=== PATIENT | female | born 1960 | race Two or more races ===

== ENCOUNTER 2024-11-01 14:05 | Inpatient (IN) | payer MEDICAID, OTHER ==
[~2024-11-01] VITALS: Ht 165.1 cm; Wt 96.4 kg
--- NOTE | 2024-11-01 14:16 | ED.PDOC ---
Doriet. trauma (HPI) HPI Comments 64 y.o female with PMhx of HLD, presents to the ED via EMS for a chief complaint of right shoulder pain s/p trip and fall getting out of [employer] today. Patient reports tripping over a cement block the parking structure and later developed generalized weakness and nausea. Patient described shoulder pain as sharp and has limited ROM. EMS reports patient was diaphoretic on scene and hypotensive in the low 90's systolic. Patient was given IV fluids and remained hypotensive at 88/60. Patient denies any dizziness, lightheadedness, chest pain vomiting, fever, chills, recent illness, hx of anemia, tarry stool, bloody stool, hematemesis. Time Seen by MD: 14:10 Reviewed notes: Nurses Notes, Hat Designer Notes, Medications, Allergies Allergies: Coded Allergies: NO KNOWN ALLERGIES (Unverified , 11/01/24) Information Source: Patient, Emergency Med Personnel Mode of Arrival: EMS Severity: Moderate Timing: Hours Prehospital treatment: 12 Lead EKG, Accucheck (112), IVF Location: (R) Shoulder Location of laceration: None Mechanism: Fall Past Medical History PAST MEDICAL HISTORY: High Lipids Surgical History: [employer]IVER History: No Pertinent [employer]LE[employer]IVER History Family History Family History: Family hx of DM, Family hx of Cancer, Family hx of stroke Social History Smoker: Non-Smoker Alcohol: Denies ETOH Use Drugs: Denies Drug Use Lives In: Home Constitutional: reports: weakness; denies: chills, diaphoresis, fatigue, fever, malaise, sweats, others EENTM: denies: blurred vision, double vision, ear bleeding, ear discharge, ear drainage, ear pain, ear ringing, eye pain, eye redness, hearing loss, mouth pain, mouth swelling, nasal discharge, nose bleeding, nose congestion, nose pain, photophobia, tearing, throat pain, throat swelling, voice changes, others Respiratory: denies: cough, hemoptysis, orthopnea, SOB at rest, shortness of breath, SOB with excertion, stridor, wheezing, others Cardiovascular: denies: chest pain, dizzy spells, diaphoresis, Dyspnea on exertion, edema, irregular heart beat, left arm pain, lightheadedness, palpitations, PND, syncope, others Gastrointestinal: denies: abdomen distended, abdominal pain, blood streaked bowels, constipated, diarrhea, dysphagia, difficulty swallowing, hematemesis, melena, nausea, poor appetite, poor fluid intake, rectal bleeding, rectal pain, vomiting, others Genitourinary: denies: abnormal vagina bleeding, burning, dyspareunia, dysuria, flank pain, frequency, hematuria, incontinence, pain, , vagina discharge, urgency, others Neurological: denies: dizziness, fainting, headache, left sided numbness, left sided weakness, numbness, paresthesia, pre-existing deficit, right sided numbness, right sided weakness, seizure, speech problems, tingling, tremors, weakness, others Musculoskeletal: reports: others (right shoulder pain ); denies: back pain, gout, joint pain, joint swelling, muscle pain, muscle stiffness, neck pain Integumetry: denies: bruises, change in color, change in hair/nails, dryness, laceration, lesions, lumps, rash, wounds, others Allergic/Immunocompromised: denies: Difficulty Healing, Frequent Infections, Hives, Itching, others Hematologic/Lymphatic: denies: anemia, blood clots, easy bleeding, easy bruising, swollen glands, others Endocrine: denies: excessive hunger, excessive sweating, excessive thirst, excessive urination, flushing, intolerance to cold, intolerance to heat, unexplained weight gain, unexplained weight loss, others Psychiatric: denies: anxiety, bipolar disorder, depression, hopeless, panic disorder, schizophrenia, sleepless, suicidal, others All Other Systems: Reviewed and Negative Physical Exam General Appearance: Moderate Distress HEENT: Normal ENT Inspection, Pharynx Normal, TMs Normal Neck: Full Range of Motion, Non-Tender, Normal, Normal Inspection Respiratory: Chest Non-Tender, Lungs Clear, No Accessory Muscle Use, No Respiratory Distress, Normal Breath Sounds Cardiovascular: No Edema, No JVD, No Murmur, No Gallop, Normal Peripheral Pulses, Regular Rate/Rhythm Breast Exam: Deferred Gastrointestinal: No Organomegaly, Non Tender, No Pulsatile Mass, Normal Bowel Sounds, Soft Genitalia: Deferred Pelvic: Deferred Rectal: Deferred Extremities: No calf tenderness, Normal capillary refill, No pedal edema Musculoskeletal : Location: Right Extremity Location: Shoulder Apperance: Limited ROM, Tenderness: Moderate Neurologic: Alert, alum operator II-XII nml as Tested, No Motor Deficits, Normal Affect, Normal Mood, No Sensory Deficits Cerebellar Function: Normal Reflexes: Normal Skin: Dry, Normal Color, Warm Lymphatic: No Adenopathy Was a procedure done? Was a procedure done?: No Differential Diagnosis Multiple Trauma: Closed Head Injury, Fractures, Abrasions, Contusion X-Ray, Labs, Meds, VS Vital Signs Date Time Temp Pulse Resp B/P (MAP) Pulse Ox O2 Delivery O2 Flow Rate FiO2 11/01/24 16:00 62 15 118/84 (95) 97 11/01/24 15:00 97.3 62 13 106/55 (72) 98 97.3 11/01/24 15:00 62 13 98 Nasal Cannula* 2 28 11/01/24 14:20 97.7 63 15 92/62 (72) 95 97.7 Lab Test 11/01/24 14:23 Range/Units White Blood Count 7.2 4.4-10.8 10^3/uL Red Blood Count 3.91 L 4.0-5.20 10^6/uL Hemoglobin 12.1 L 12.2-16.2 g/dL Hematocrit 34.8 L 36.0-46.0 % Mean Corpuscular Volume 89.0 80.0-100.0 fL Mean Corpuscular Hemoglobin 31.1 28.0-32.0 pg Mean Corpuscular Hemoglobin Concent 34.9 32.0-36.0 g/dL Red Cell Distribution Width 12.9 11.8-14.3 % Platelet Count 330 140-450 10^3/uL Mean Platelet Volume 6.4 L 6.9-10.8 fL Neutrophils (%) (Auto) 52.8 37.0-80.0 % Lymphocytes (%) (Auto) 37.5 10.0-50.0 % Monocytes (%) (Auto) 7.8 0.0-12.0 % Eosinophils (%) (Auto) 1.5 0.0-7.0 % Basophils (%) (Auto) 0.4 0.0-2.0 % Neutrophils # (Auto) 3.8 1.6-8.6 10 ^3/uL Lymphocytes # (Auto) 2.7 0.4-5.4 10 ^3/uL Monocytes # (Auto) 0.6 0-1.3 10 ^3/uL Eosinophils # (Auto) 0.1 0-0.8 10 ^3/uL Basophils # (Auto) 0 0-0.2 10 ^3/uL Nucleated Red Blood Cells 0.1 % Sodium Level 138 136-145 mmol/L Potassium Level 4.2 3.5-5.1 mmol/L Chloride Level 107 98-107 mmol/L Carbon Dioxide Level 23 20-31 mmol/L Anion Gap 8 5-15 Blood Urea Nitrogen 8 L 9-23 mg/dL Creatinine 0.79 0.550-1.02 mg/dL Glomerular Filtration Rate Calc 83 >90 mL/min BUN/Creatinine Ratio 10.1 10.0-20.0 Serum Glucose 104 74-106 mg/dL Calcium Level 9.0 8.7-10.4 mg/dL Current Medications Medications (Trade) Dose Ordered Sig/Yessy Route Start Time Stop Time Status Last Admin Sodium Chloride 1,000 ml @ 1,000 mls/hr Q1H ONCE IV 11/01/24 14:15 11/01/24 15:14 DC 11/01/24 15:29 Ondansetron HCl (Zofran) 4 mg ONCE ONCE IV 11/01/24 14:15 11/01/24 14:16 DC 11/01/24 15:28 Hep-Lock was established The patient was given a 1 L bolus of normal saline The patient was given Zofran 4 mg IV push for the nausea The patient's CBC and chemistry panel are within normal limits The patient is being admitted at this time The patient is shoulder was x-rayed and shows: FINDINGS/IMPRESSION: Possible Hill-Sachs deformity to the proximal humerus no prior studies for comparison. Consider nonemergent MRI for further evaluation. Images Reviewed?: Images reviewed and evaluated by me Time of 1ST Reevaluation: 14:16 Reevaluation 1ST: Unchanged Patient Education/Counseling: Diagnosis, Treatment, Prognosis Family Education/Counseling: No Family Present Departure 1 Departure Time of Disposition: 16:43 Impression: Primary Impression: History of fall Additional Impressions: Hypotension Qualified Codes: I95.0 - Idiopathic hypotension Autonomic dysfunction Right humeral fracture Qualified Codes: S42.294A - Other nondisplaced fracture of upper end of right humerus, initial encounter for closed fracture Disposition: ADMITTED INPATIENT Admit to: [facility] Condition: Fair Critical Care Note Critical Care Time?: Yes (35 min-critical care time only) Stability Stability form required: Yes Unstable for transfer: Telemetry monitoring (Telemetry monitoring required), ED Physician Assesment (Clinical assesment) I personally scribed for YUE MORRIS MD ([email or web address]) on 11/01/24 at 14:16. Electronically submitted by Olive Trent ([facility]). YUE MORRIS MD Nov 01, 2024 14:16
[2024-11-01 14:47] LABS: Hematocrit 34.8 % (36.0-46.0); Hemoglobin 12.1 g/dL (12.2-16.2); Mean Corpuscular Hemoglobin 31.1 pg (28.0-32.0); Mean Corpuscular Volume 89.0 fL (80.0-100.0); Nucleated Red Blood Cells % 0.1 %
[2024-11-01 14:52] LABS: Chloride 107 mmol/L (98-107); Potassium 4.2 mmol/L (3.5-5.1); Sodium 138 mmol/L (136-145)
[2024-11-01 14:53] LABS: Anion Gap 8 (5-15); Calcium 9.0 mg/dL (8.7-10.4); Carbon Dioxide 23 mmol/L (20-31)
[2024-11-01 14:58] LABS: BUN/Creatinine Ratio 10.1 (10.0-20.0); Glucose 104 mg/dL (74-106)
[2024-11-01 15:00] VITALS: PULSE 62; RESP 13; O2SAT 98
[2024-11-01 15:00] LABS: Blood Urea Nitrogen 8 mg/dL (9-23)
--- NOTE | 2024-11-01 15:23 | DVH ---
CLINICAL INDICATION: pain TECHNIQUE: 3 radiographic views of the right shoulder were obtained. Comparison: None FINDINGS/IMPRESSION: Possible Hill-Sachs deformity to the proximal humerus no prior studies for comparison. Consider nonemergent MRI for further evaluation.
[2024-11-01] MEDS: ONDANSETRON HCL 4 MG/2 ML VIAL IV ONE (15:28)
[2024-11-01] MEDS: SODIUM CHLORIDE 0.9% 1,000 ML IV ONE (15:29)
[2024-11-01] MEDS: ACETAMINOPHEN 325 MG TAB PO ONE (16:46)
[2024-11-01 18:22] LABS: Urine Protein, UAD Negative (Negative)
--- NOTE | 2024-11-01 22:26 | DVHHP2 ---
History of Present Illness History of Present Illness patient is 64 years old female with PMH of hyperlipidemia was brought in by EMS status post fall. Patient tripped and fell today when she was getting out of her [employer]. As per patient she tripped and fell on concrete block at the parking lot. Patient denied hitting her head, dizziness or vertigo before falling. Following a fall patient complained of pain in the right shoulder, 10/10, constant, increased with movement. Patient also endorsed some nausea but no vomiting. Per EMS documentation patient was diaphoretic, hypotensive at the scene, blood pressure was 88/60. Patient denied any chest pain, shortness of breath, diarrhea, palpitation, dysarthria or change in vision. Initial lab workup revealed hemoglobin 12.1, urinalysis negative for UTI. X-ray right shoulder Possible Hill-Sachs deformity to the proximal humerus. Past Medical History Hyperlipidemia Past Surgical History , jaw surgery at the age of 15 Family History none Past Social History Patient denied smoking/alcoholism/drug abuse, lives alone in a trailer Review of Systems Review of Systems Allergy- NKDA Patient was seen today at the bedside. Cardiovascular- deny acute chest pain or shortness of breath or cough or palpitation Respiratory denies cough or short of breath or wheezing Gastrointestinal- denies any rectal bleeding, vomiting Musculoskeletal-denies acute joint swelling or tenderness or redness Neurological- denies acute dysarthria, dysphagia, change in vision Psychiatry- denies depression or SI or HI Skin- denies acute rash or purpura Allergies: Coded Allergies: NO KNOWN ALLERGIES (Unverified , 11/01/24) Exam Vital Signs Vital Signs Date Time Temp Pulse Resp B/P (MAP) Pulse Ox O2 Delivery O2 Flow Rate FiO2 11/01/24 20:00 77 11/01/24 18:00 15 127/78 (94) 98 11/01/24 15:00 97.3 97.3 11/01/24 15:00 Nasal Cannula* 2 28 Exam General examination- awake, alert, conversant HEENT- PEERLA, no acute nasal discharge Cardiovascular- S1-S2 audible, rate and rhythm regular, no murmur Respiratory- CTAB, no wheeze or rhonchi Gastrointestinal-nontender, bowel sound+. Nondistended Musculoskeletal-no acute joint swelling or tenderness or redness extremity- right shoulder tenderness, limited range of motion+ Neurological- cranial nerves intact, no acute dysarthria or dysphagia Psychiatry- denies depression or SI or HI Skin- no acute rash or purpura Labs/Xrays Labs Test 11/01/24 17:47 11/01/24 14:23 Range/Units Urine Color Colorless Yellow Urine Clarity Clear Clear Urine pH 7.0 5.0-9.0 Urine Specific [place] 1.007 1.001-1.035 Urine Protein Negative Negative Urine Ketones Negative Negative Urine Blood Negative Negative /uL Urine Nitrite Negative Negative Urine Bilirubin Negative Negative Urine Urobilinogen Normal Negative mg/dL Urine Leukocyte Esterase Negative Negative /uL Urine RBC 3 0 - 4 /hpf Urine Microscopic WBC < 1 0-5 /HPF Urine Squamous Epithelial Cells Few <5 /hpf Urine Bacteria Few H None Seen /hpf Urine Glucose Normal Normal mg/dL White Blood Count 7.2 4.4-10.8 10^3/uL Red Blood Count 3.91 L 4.0-5.20 10^6/uL Hemoglobin 12.1 L 12.2-16.2 g/dL Hematocrit 34.8 L 36.0-46.0 % Mean Corpuscular Volume 89.0 80.0-100.0 fL Mean Corpuscular Hemoglobin 31.1 28.0-32.0 pg Mean Corpuscular Hemoglobin Concent 34.9 32.0-36.0 g/dL Red Cell Distribution Width 12.9 11.8-14.3 % Platelet Count 330 140-450 10^3/uL Mean Platelet Volume 6.4 L 6.9-10.8 fL Neutrophils (%) (Auto) 52.8 37.0-80.0 % Lymphocytes (%) (Auto) 37.5 10.0-50.0 % Monocytes (%) (Auto) 7.8 0.0-12.0 % Eosinophils (%) (Auto) 1.5 0.0-7.0 % Basophils (%) (Auto) 0.4 0.0-2.0 % Neutrophils # (Auto) 3.8 1.6-8.6 10 ^3/uL Lymphocytes # (Auto) 2.7 0.4-5.4 10 ^3/uL Monocytes # (Auto) 0.6 0-1.3 10 ^3/uL Eosinophils # (Auto) 0.1 0-0.8 10 ^3/uL Basophils # (Auto) 0 0-0.2 10 ^3/uL Nucleated Red Blood Cells 0.1 % Sodium Level 138 136-145 mmol/L Potassium Level 4.2 3.5-5.1 mmol/L Chloride Level 107 98-107 mmol/L Carbon Dioxide Level 23 20-31 mmol/L Anion Gap 8 5-15 Blood Urea Nitrogen 8 L 9-23 mg/dL Creatinine 0.79 0.550-1.02 mg/dL Glomerular Filtration Rate Calc 83 >90 mL/min BUN/Creatinine Ratio 10.1 10.0-20.0 Serum Glucose 104 74-106 mg/dL Calcium Level 9.0 8.7-10.4 mg/dL SEPSIS Sepsis Screen Date sepsis recognized/suspect: Nov 01, 2024 Time Sepsis recognized/suspect: 1499 Recent Procedure: No On Antibiotic Therapy: No Respiratory Rate >20: No Heart Rate >90: No Temp<36 C (96.8 F) or >38.3 C: No SBP <90 or MAP <65 mmHG: No New Acute Mental Status Change: No Is the patient on CPAP, BIPAP,: No Vital Signs Date Time Temp Pulse Resp B/P (MAP) Pulse Ox O2 Delivery O2 Flow Rate FiO2 11/01/24 20:00 77 11/01/24 18:00 65 15 127/78 (94) 98 11/01/24 16:00 62 15 118/84 (95) 97 11/01/24 15:00 97.3 62 13 106/55 (72) 98 97.3 11/01/24 15:00 62 13 98 Nasal Cannula* 2 28 Laboratory Tests Test 11/01/24 14:23 White Blood Count 7.2 10^3/uL (4.4-10.8) Medications Medications Dose Ordered Sig/Yessy Route Start Time Stop Time Status Last Admin Dose Admin Acetaminophen 650 mg ONCE ONCE PO 11/01/24 16:45 11/01/24 16:46 DC 11/01/24 16:46 650 MG Ondansetron HCl 4 mg ONCE ONCE IV 11/01/24 14:15 11/01/24 14:16 DC 11/01/24 15:28 4 MG Sodium Chloride 1,000 ml @ 1,000 mls/hr Q1H ONCE IV 11/01/24 14:15 11/01/24 15:14 DC 11/01/24 15:29 1,000 MLS/HR Assessment/Plan Assessment/Plan Assessment and plan # fall, right shoulder pain-rule out acute Humerus fracture/rotator cuff tear -x-ray right shoulder- Possible Hill-Sachs deformity to the proximal humerus -continue pain medication as prescribed -orthopedic consult # hypotension, rule out cardiac arrhythmia/orthostatic hypotension/ BPPV/ dehydration -status post IV normal saline -maintain oral hydration -monitor vitals -ordered orthostatic vitals -pending echo 2D # hyperlipidemia -atorvastatin 40 mg p.o. daily # obesity - patient was counseled about the effect of obesity on health, physical activity, healthy diet, weight reduction PCP-patient reported she does not have a PCP Diet- regular diet Goals of care, Code status full code ; discussed with >15 minutes PUD prophylaxis: Pantoprazole DVT prophylaxis: Lovenox Plan discussed with Dr. Rick , nursing staff, Total time spent on patient evaluation, chart review, assessment and plan, discussion discussion >35 minutes Plan discussed with: Patient, Other (RN) Date of Service: Nov 01, 2024 Billing Provider: SHELBI RICK MD Common Visit Codes: [id number] INP/OBS CARE (HIGH) Secondary Visit Codes: [id number] CARE PLAN 30 MINUTES CHRISTIE GUTIERREZ RESIDENT Nov 01, 2024 22:26
[2024-11-01 23:00] LABS: Alanine Aminotransferase 30.0 U/L (7-40); Albumin 4.0 g/dL (3.2-4.8); Alkaline Phosphatase 48.0 U/L (46-116); Total Protein 6.4 g/dL (5.7-8.2)
[2024-11-01 23:01] LABS: Bilirubin, Direct 0.1 mg/dL (<0.3); Bilirubin, Total 0.6 mg/dL (0.2-1.0)
[2024-11-02] VITALS (11 sets, daily range): BP systolic 117–142; BP diastolic 62–80; PULSE 62–99; RESP 17–20; TEMP 98–99.5; O2SAT 90–97
[2024-11-02 00:16] LABS: Amphetamine Screen, Urine Neg (NEGATIVE); Barbiturate Scree,Urine Neg (NEGATIVE); Benzodiazephine Screen, Urine Neg (NEGATIVE); Cannabinoid Screen, Urine Neg (NEGATIVE); Cocaine Screen, Urine Neg (NEGATIVE); Opiate Scree,Urine Neg (NEGATIVE); Phencyclidine Screen, Urine Neg (NEGATIVE)
[2024-11-02] MEDS ORDERED: ACET-6 PO (00:32)
[2024-11-02] MEDS: PANTOPRAZOLE 40 MG TAB PO ONE (00:42)
[2024-11-02] MEDS: ENOXAPARIN SOD 40 MG/0.4 ML SYRINGE SC ONE (00:43)
[2024-11-02] MEDS: ACETAMINOPHEN 325 MG TAB PO PRN (01:05)
[2024-11-02] MEDS: MAGNESIUM SULFATE 1GM/100ML 100 ML IV ONE (02:47)
[2024-11-02] MEDS: SODIUM CHLOR 0.9% PF (SALINE LOCK) 10ML VIAL/SYR IV SCH (06:25)
[2024-11-02] MEDS: PANTOPRAZOLE 40 MG TAB PO SCH (06:25)
[2024-11-02 11:20] LABS: Hematocrit 35.4 % (36.0-46.0); Hemoglobin 12.2 g/dL (12.2-16.2); Mean Corpuscular Hemoglobin 30.8 pg (28.0-32.0); Mean Corpuscular Volume 89.6 fL (80.0-100.0); Nucleated Red Blood Cells % 0.0 %
[2024-11-02 11:38] LABS: Cholesterol 181 mg/dL (< 200)
[2024-11-02 11:39] LABS: Alanine Aminotransferase 27 U/L (7-40); Albumin 3.8 g/dL (3.2-4.8); Alkaline Phosphatase 52 U/L (46-116); Anion Gap 7 (5-15); Bilirubin, Total 0.6 mg/dL (0.2-1.0); Calcium 9.3 mg/dL (8.7-10.4); Carbon Dioxide 24 mmol/L (20-31); Potassium 3.8 mmol/L (3.5-5.1); Sodium 139 mmol/L (136-145); Total Protein 6.2 g/dL (5.7-8.2)
[2024-11-02 11:42] LABS: BUN/Creatinine Ratio 6.9 (10.0-20.0); Blood Urea Nitrogen < 5 mg/dL (9-23); Chloride 108 mmol/L (98-107); Creatine Kinase IFCC 306 U/L (34-145); Glucose 132 mg/dL (74-106); HDL Cholesterol 37 mg/dL (40-59); Triglycerides 163 mg/dL (< 150)
--- NOTE | 2024-11-02 14:41 | DVHPNRES ---
Progress Note Date Seen: Nov 02, 2024 Resident Creating Document: JOHNNY NUR RESIDENT Objective vital signs Vital Sign Date Time Temp Pulse Resp B/P (MAP) Pulse Ox O2 Delivery O2 Flow Rate FiO2 11/02/24 12:41 98.3 68 17 117/67 (84) 95 98.3 11/02/24 08:00 Room Air* 0 21 Total Intake and Output 11/01/24 11/01/24 11/02/24 15:00 23:00 07:00 Intake Total 1000 ml 0 ml Balance 1000 ml 0 ml medications Current Medications Medications Dose Ordered Sig/Yessy Route Start Time Stop Time Status Last Admin Dose Admin Sodium Chloride 10 ml Q8HR IV 11/02/24 06:00 11/02/24 09:48 10 ML Acetaminophen 650 mg Q6HP PRN PO 11/01/24 22:30 11/02/24 09:47 650 MG Enoxaparin Sodium 40 mg Q24H SC 11/02/24 21:00 Pantoprazole Sodium 40 mg DAILY@0600 PO 11/02/24 06:00 11/02/24 06:25 40 MG Atorvastatin Calcium 40 mg HS PO 11/02/24 22:00 laboratory and microbiology Laboratory Tests 11/02/24 10:10 Test 11/02/24 10:10 Range/Units Serum Glucose 132 H 74-106 mg/dL REGGIE BARNES RESIDENT Nov 02, 2024 14:41
--- NOTE | 2024-11-02 15:48 | DVH ---
CLINICAL INDICATION: Rule out right shoulder fracture/rotator cuff tear COMPARISON: None TECHNIQUE: Multiplanar, multisequence MRI of the right shoulder was performed without contrast. Contrast: None FINDINGS: Glenohumeral joint: There is no fracture or bone marrow edema. Alignment is maintained. No focal a rticular cartilage defect. There is no joint effusion or synovitis. Acromioclavicular joint: There are degenerative changes in the acromioclavicular joint with spurring. Rotator cuff and bursae: There is a full-thickness tear of the supraspinatus tendon and also of the i nfraspinatus tendon. There is roughly 2.5 cm separation of the site of tear. There is also partial te ars of the infraspinatus muscle and of the deltoid muscle posterior to the shoulder joint with edema seen on fluid sensitive images. On transaxial images there is high-grade partial tear of the subscapu forrest tendon and of the subscapularis muscle Biceps tendon and glenoid labrum: The labrum is unremarkable. No Hill-Sachs deformity is presen t. There is lateral subluxation of the long head of the biceps within the bicipital groove. The intra -articular biceps is poorly seen. There is a joint effusion present and there is fluid in the subacromial subdeltoid bursa and subcorac oid bursa. Coracohumeral ligament is not well seen. IMPRESSION: 1. There is no evidence of Hill-Sachs deformity or of labral tear. 2. There is however extensive soft tissue injury to the shoulder joint including full-thickness tears of the supraspinatus and infraspinatus tendons, high-grade partial tears of the subscapularis tendon and muscle and of the infraspinatus muscle. Partial tear of the deltoid muscle. Probable tear of th e intra-articular biceps.
--- NOTE | 2024-11-02 16:48 | DVHPNRES ---
Progress Note Date Seen: Nov 02, 2024 Resident Creating Document: JOHNNY NUR Medical Necessity Reason Pt with a Central, PICC or Fol: No Subjective Review of Systems History of Present Illness Patient is 64 years old female with PMH of hyperlipidemia came to ED with a history of mechanical fall. Patient tripped and fell yesterday when she was getting out of her [employer] on concrete block at the parking lot. Patient was complaining of right shoulder pain. denied hitting her head, dizziness or vertigo before falling., hypotensive at the scene, blood pressure was 88/60. Patient denied any chest pain, shortness of breath, diarrhea, palpitation, dysarthria or change in vision. Today patient was seen and examined at bedside. patient is still complaining of right shoulder pain, x-ray shows no fracture but some abnormality, MRI ordered. Objective vital signs Vital Sign Date Time Temp Pulse Resp B/P (MAP) Pulse Ox O2 Delivery O2 Flow Rate FiO2 11/02/24 12:41 98.3 68 17 117/67 (84) 95 98.3 11/02/24 08:00 Room Air* 0 21 Total Intake and Output 11/01/24 11/01/24 11/02/24 15:00 23:00 07:00 Intake Total 1000 ml 0 ml Balance 1000 ml 0 ml medications Current Medications Medications Dose Ordered Sig/Yessy Route Start Time Stop Time Status Last Admin Dose Admin Sodium Chloride 10 ml Q8HR IV 11/02/24 06:00 11/02/24 09:48 10 ML Acetaminophen 650 mg Q6HP PRN PO 11/01/24 22:30 11/02/24 09:47 650 MG Enoxaparin Sodium 40 mg Q24H SC 11/02/24 21:00 Pantoprazole Sodium 40 mg DAILY@0600 PO 11/02/24 06:00 11/02/24 06:25 40 MG Atorvastatin Calcium 40 mg HS PO 11/02/24 22:00 Examination General examination- awake, alert, conversant HEENT- PEERLA, no acute nasal discharge Cardiovascular- S1-S2 audible, rate and rhythm regular, no murmur Respiratory- CTAB, no wheeze or rhonchi Gastrointestinal-nontender, bowel sound+. Nondistended Musculoskeletal-no acute joint swelling or tenderness or redness extremity- right shoulder tenderness, limited range of motion+ Neurological- cranial nerves intact, no acute dysarthria or dysphagia Psychiatry- denies depression or SI or HI laboratory and microbiology Laboratory Tests 11/02/24 10:10 Test 11/02/24 10:10 Range/Units Serum Glucose 132 H 74-106 mg/dL Labs and/or images reviewed: Labs reviewed by me, Image(s) reviewed by me Problem List/Assessment/Plan Problem List/Assessment/Plan # Right shoulder pain due to mechanical fall # right shoulder deformity # Ruled out right shoulder fracture # Possible rotator cuff tear # Mild rhabdomyolysis - x-ray shows no fracture but some deformity -MRI ordered - Mildly elevated creatinine kinase - orthopedic consult pending - pain management # Hypotension resolved - monitor BP # Hyperlipidemia - continue atorvastatin 40 mg daily - low carb low calorie diet # morbid obesity - BMI is 35.0 - lifestyle modification, regular exercise and low carb low calorie diet Goal of care discussed with patient for 23 minutes: Full code Plan discussed with Plan discussed with: Patient, Other (RN) Date of Service: Nov 02, 2024 Billing Provider: ANNEL HEREDIA MD Common Visit Codes: [id number] INP/OBS CARE(HIGH) JOHNNY NUR RESIDENT Nov 02, 2024 16:48 REGGIE BARNES RESIDENT Nov 02, 2024 19:23 ANNEL HEREDIA MD Nov 03, 2024 16:19
[2024-11-02] MEDS: SODIUM CHLORIDE 0.9% 1,000 ML IV SCH (19:30)
--- NOTE | 2024-11-02 20:11 | DVHSR ---
APPROVED REPORT EXAM: Two-dimensional and M-mode echocardiogram with Doppler and color Doppler. Blood Pressure: 121/62 mmHg INDICATION Valvular heart disease/ CHF RISK FACTORS Height: 65, Weight: 210 DIMENSIONS LVDd4.6 (3.8-5.7cm)LA (2D)3.7 (1.9-4.0cm)Aortic Root3.3 (2.0-3.7cm) LVDs3.2 (2.5-4.0cm)LA (MM) (1.9-4.0cm)Aortic Cusp Exc1.9 (1.5-2.0cm) EF (%) 57.0 (55-70%)Rt. Atrium3.8 (1.9-4.0cm)Asc. Aorta cm IVSd1.1 (0.7-1.1cm)RV (D) (1.8-2.4cm) PWd1.2 (0.7-1.1cm) Mitral Valve MitralMitral Stenosis E wave0.87m/sMV Mean GR.mmHg A wave1.12m/sMV Peak GR.55mmHg E/A ratio0.82D MVAcm2 DECEL [id number] 1/2 [id number] IVRTmsDop MVA3.29cm2 Aortic Valve Aortic ValveAortic Stenosis V11.02m/Hanny Mean GR.4mmHg V21.40m/Hanny Peak GR.8mmHg LVOT Diameter1.9 (1.8-2.4cm)Doppler AVA2.06cm2 Pulmonic Valve V21.22m/s Tricuspid Valve TR Velocity2.48m/s [id number] Other Information Technically limited study due to body habitus. Conclusion LV EF IS 65% AND IS NORMAL MODERATE DEGREE MVP NORMAL RV FUNCTION NORMAL TV,PV AND AORTIC VALVE NO EFFUSION
--- NOTE | 2024-11-02 21:24 | DVHINCON2 ---
Consult Note Consult Consult Note Reason for Consult: Right shoulder pain after ground-level fall --- HISTORY OF PRESENT ILLNESS: Ms. Gomez is an inpatient who sustained a ground-level fall, resulting in right shoulder pain. Imaging including X-ray and MRI of the right shoulder were completed. X-ray was notable for a possible small Hill-Sachs lesion. MRI demonstrated a full-thickness tear of the supraspinatus infraspinatus tendon, along with partial-thickness tearing of the subscapularis tendon for which ortho was consulted. She reports persistent right shoulder pain with motion, but denies any numbness, tingling, or constitutional symptoms. No previous right shoulder pain reported by patient. --- PHYSICAL EXAMINATION (Right Shoulder): Inspection: No open wounds or ecchymosis noted. No deformity. Palpation: Localized tenderness over the anterior and lateral shoulder. Range of Motion (Active): Forward Flexion: 0 to 40 painful Abduction: 0 to 30 painful Limited exam due to pain Neurologic: Grossly neurovascularly intact to the right upper extremity. Other Joints: no specific findings of concern at this time, none reported by patient. --- IMAGING REVIEW: X-ray (Right Shoulder): Possible small Hill-Sachs lesion, no acute fracture or dislocation. MRI (Right Shoulder): Full-thickness tear of the supraspinatus, infraspinatous tendon, partial-thickness tear of the subscapularis tendon. bicep subluxation, subacromial bursitis , Intact glenoid and labrum. evidence of joint effusion, mild. --- ASSESSMENT: 1. Right shoulder pain secondary to traumatic injury from ground-level fall 2. Full-thickness supraspinatus tear 3. Partial-thickness subscapularis tear 4. Possible Hill-Sachs lesion 5. No acute neurovascular compromise --- PLAN: Advised bedside Nurse to place patient in a sling for comfort and stabilization Discharge from orthopedic standpoint is appropriate with pain control per hospitalist Recommend outpatient orthopedic follow-up within 12 weeks for further evaluation and discussion of surgical vs non surgical management Pain control as per hospital protocol Patient and bedside nurse notified of findings and plan oncall surgeon agree with plan Plan discussed with: Patient, Other (bedside nurse) Visit Coding Surgery Date of Service if different f: Nov 02, 2024 Billing Provider: EZRA HUANG PAC Surgery Visit Codes: [id number] - INP CONSULT <55 MIN EZRA HUANG PAC Nov 02, 2024 21:24
[2024-11-02] MEDS: ENOXAPARIN SOD 40 MG/0.4 ML SYRINGE SC SCH (21:36)
[2024-11-02] MEDS: ATORVASTATIN 20 MG TAB PO SCH (21:52)
[2024-11-03] VITALS (8 sets, daily range): BP systolic 121–153; BP diastolic 74–91; PULSE 64–88; RESP 18–20; TEMP 97.6–98.2; O2SAT 62–97
[2024-11-03 06:11] LABS: Hematocrit 36.8 % (36.0-46.0); Hemoglobin 12.6 g/dL (12.2-16.2); Mean Corpuscular Hemoglobin 30.8 pg (28.0-32.0); Mean Corpuscular Volume 89.7 fL (80.0-100.0); Nucleated Red Blood Cells % 0.1 %
[2024-11-03 06:26] LABS: Anion Gap 6 (5-15); Carbon Dioxide 25 mmol/L (20-31); Chloride 107 mmol/L (98-107); Potassium 4.3 mmol/L (3.5-5.1); Sodium 138 mmol/L (136-145)
[2024-11-03 06:28] LABS: Calcium 8.8 mg/dL (8.7-10.4)
[2024-11-03 06:32] LABS: Glucose 95 mg/dL (74-106)
[2024-11-03 06:33] LABS: BUN/Creatinine Ratio 11.7 (10.0-20.0); Blood Urea Nitrogen 7 mg/dL (9-23)
--- NOTE | 2024-11-03 11:39 | DVHDSRES ---
Discharge Summary Date of Admission Resident Creating Document: JOHNNY NUR RESIDENT Nov 01, 2024 at 22:24 Date of Discharge: Nov 04, 2024 Admitting Diagnosis Right shoulder pain Labs/Diagnostic Data: Laboratory Results Test 11/03/24 05:03 11/02/24 10:10 11/02/24 01:25 11/01/24 17:47 White Blood Count 7.6 10^3/uL (4.4-10.8) Red Blood Count 4.10 10^6/uL (4.0-5.20) Hemoglobin 12.6 g/dL (12.2-16.2) Hematocrit 36.8 % (36.0-46.0) Mean Corpuscular Volume 89.7 fL (80.0-100.0) Mean Corpuscular Hemoglobin 30.8 pg (28.0-32.0) Mean Corpuscular Hemoglobin Concent 34.4 g/dL (32.0-36.0) Red Cell Distribution Width 13.2 % (11.8-14.3) Platelet Count 332 10^3/uL (140-450) Mean Platelet Volume 6.5 fL (6.9-10.8) Neutrophils (%) (Auto) 42.3 % (37.0-80.0) Lymphocytes (%) (Auto) 46.5 % (10.0-50.0) Monocytes (%) (Auto) 8.8 % (0.0-12.0) Eosinophils (%) (Auto) 2.2 % (0.0-7.0) Basophils (%) (Auto) 0.2 % (0.0-2.0) Neutrophils # (Auto) 3.2 10 ^3/uL (1.6-8.6) Lymphocytes # (Auto) 3.5 10 ^3/uL (0.4-5.4) Monocytes # (Auto) 0.7 10 ^3/uL (0-1.3) Eosinophils # (Auto) 0.2 10 ^3/uL (0-0.8) Basophils # (Auto) 0 10 ^3/uL (0-0.2) Nucleated Red Blood Cells 0.1 % Sodium Level 138 mmol/L (136-145) Potassium Level 4.3 mmol/L (3.5-5.1) Chloride Level 107 mmol/L (98-107) Carbon Dioxide Level 25 mmol/L (20-31) Anion Gap 6 (5-15) Blood Urea Nitrogen 7 mg/dL (9-23) Creatinine 0.60 mg/dL (0.550-1.02) Glomerular Filtration Rate Calc 100 mL/min (>90) BUN/Creatinine Ratio 11.7 (10.0-20.0) Serum Glucose 95 mg/dL (74-106) Calcium Level 8.8 mg/dL (8.7-10.4) Hemoglobin A1c 5.6 % A1C (<5.7) Magnesium Level 1.8 mg/dL (1.6-2.6) Total Bilirubin 0.6 mg/dL (0.2-1.0) Aspartate Amino Transferase (AST) 29 U/L (13-40) Alanine Aminotransferase (ALT) 27 U/L (7-40) Alkaline Phosphatase 52 U/L (46-116) Creatine Kinase 306 U/L (34-145) Total Protein 6.2 g/dL (5.7-8.2) Albumin 3.8 g/dL (3.2-4.8) Triglycerides Level 163 mg/dL (< 150) Cholesterol Level 181 mg/dL (< 200) LDL Cholesterol 135 mg/dL (< 100) HDL Cholesterol 37 mg/dL (40-59) Vitamin B12 Level 883 pg/mL (211-911) Vitamin D 25-Hydroxy 52.9 ng/mL (30.0-100) Folic Acid 23.02 ng/mL (>5.38) Troponin I High Sensitivity < 3 ng/L (</=34) Urine Color Colorless (Yellow) Urine Clarity Clear (Clear) Urine pH 7.0 (5.0-9.0) Urine Specific [place] 1.007 (1.001-1.035) Urine Protein Negative (Negative) Urine Ketones Negative (Negative) Urine Blood Negative /uL (Negative) Urine Nitrite Negative (Negative) Urine Bilirubin Negative (Negative) Urine Urobilinogen Normal mg/dL (Negative) Urine Leukocyte Esterase Negative /uL (Negative) Urine RBC 3 /hpf (0 - 4) Urine Microscopic WBC < 1 /HPF (0-5) Urine Squamous Epithelial Cells Few /hpf (<5) Urine Bacteria Few /hpf (None Seen) Urine Glucose Normal mg/dL (Normal) Urine Opiates Screen Neg (NEGATIVE) Urine Fentanyl Screen Neg (NEGATIVE) Urine Barbiturates Screen Neg (NEGATIVE) Urine Phencyclidine Screen Neg (NEGATIVE) Urine Amphetamines Screen Neg (NEGATIVE) Urine Benzodiazepines Screen Neg (NEGATIVE) Urine Cocaine Screen Neg (NEGATIVE) Urine Cannabinoids Screen Neg (NEGATIVE) Test 11/01/24 14:23 Direct Bilirubin 0.1 mg/dL (<0.3) Thyroid Stimulating Hormone (TSH) 1.78 uIU/mL (0.55-4.78) Other Laboratory Tests 11/03/24 05:03 Brief Hx & Hospital Course: Patient is 64 years old female with PMH of hyperlipidemia came to ED with a history of mechanical fall. Patient tripped and fell yesterday when she was getting out of her [employer] on concrete block at the parking lot. Patient was complaining of right shoulder pain. denied hitting her head, dizziness or vertigo before falling., hypotensive at the scene, blood pressure was 88/60. Patient denied any chest pain, shortness of breath, diarrhea, palpitation, dysarthria or change in vision. Today patient was seen and examined at bedside. patient is still complaining of right shoulder pain, x-ray shows no fracture but some abnormality, MRI ordered. Patient had right shoulder pain due to mechanical fall. X-ray shows no acute fractue or dislocation. MRI (right shoulder) demonstrated a full-thickness tear of the supraspinatus infraspinatus tendon, partial-thickness tear of the subscapularis tendon, bicep subluxation, subacrpmial bursitis, intact glenoid and labrum. Orthopedics was consulted recommended: place patient in a sling for comfort and stabilization and outpatient orthopedic follow-up within 12 weeks for further evaluation and discussion of surgical vs non surgical management. Orthopedic cleared the patient to discharge home. We have started on Acetaminophen. Today patient still has pain and we applied sling to her right shoulder. Recommended physical therapy, consulted social service for outpatient physical therapy. Recommended to follow up with orthopedic surgeon as scheduled, follow-up with PCP in 1-2 weeks. Consults/Reason for consult Orthopedic consult Condition at Discharge: Fair Final Diagnosis/Problems List # Right shoulder pain due to mechanical fall # right shoulder deformity # Ruled out right shoulder fracture # Possible rotator cuff tear # Mild rhabdomyolysis # Hypotension resolved # Hyperlipidemia # morbid obesity Discharge Disposition: Home SNF Discharge Will this Physician continue t: No Discharge Instruct/Medications Diet: Regular Activity: Light activity Follow Up/Referral: Follow up with orthopedic surgeon as scheduled, Follow- up with PCP in 1-2 weeks. Medications: Tylenol and ibuprofen Continue other home medications Scheduled Acetaminophen (Acetaminophen Extra Stren), 1 TAB PO TID, (Reported) Discharge Statement: "Patient was advised to return to the ER or call 911 if any headaches, dizziness, shortness of breath, chest pain, abdominal pain, bleeding, fevers, or worsening of medical condition. Patient was counseled about treatment plan, medications, possible side effects, patientverbalized understanding. All questions were answered to the best of my ability. This discharge took greater then 30 minutes in planning, reviewing documentation, counseling the patient, and discussing with other team members." ASSESSMENT ASSESSMENT Assessment JOHNNY NUR RESIDENT Nov 03, 2024 11:39
--- NOTE | 2024-11-03 16:12 | DVHPNRES ---
Progress Note Date Seen: Nov 03, 2024 Resident Creating Document: JOHNNY NUR RESIDENT Has the PT tested + for MRSA If YES, has PT been informed?: No Medical Necessity Reason Pt with a Central, PICC or Fol: No Subjective Review of Systems Patient is 64 years old female with PMH of hyperlipidemia came to ED with a history of mechanical fall. Patient tripped and fell yesterday when she was getting out of her [employer] on concrete block at the parking lot. Patient was complaining of right shoulder pain. denied hitting her head, dizziness or vertigo before falling., hypotensive at the scene, blood pressure was 88/60. Patient denied any chest pain, shortness of breath, diarrhea, palpitation, dysarthria or change in vision. Today patient was seen and examined at bedside. patient is still complaining of right shoulder pain, x-ray shows no fracture but some abnormality, MRI ordered. Patient had right shoulder pain due to mechanical fall. X-ray shows no acute fractue or dislocation. MRI (right shoulder) demonstrated a full-thickness tear of the supraspinatus infraspinatus tendon, partial-thickness tear of the subscapularis tendon, bicep subluxation, subacrpmial bursitis, intact glenoid and labrum. Orthopedics was consulted recommended: place patient in a sling for comfort and stabilization and outpatient orthopedic follow-up within 1-2 weeks for further evaluation and discussion of surgical vs non surgical management. Orthopedic cleared the patient to discharge home. We have started on Acetaminophen. Today patient still has pain and we applied sling to her right shoulder. Recommended physical therapy, consulted social service for outpatient physical therapy. Recommended to follow up with orthopedic surgeon as scheduled, follow-up with PCP in 1-2 weeks. Patient reports: Feels worse Objective vital signs Vital Sign Date Time Temp Pulse Resp B/P (MAP) Pulse Ox O2 Delivery O2 Flow Rate FiO2 11/03/24 13:00 97.6 64 20 153/91 (111) 62 97.6 11/03/24 08:00 Room Air* 0 21 Total Intake and Output 11/02/24 11/02/24 11/03/24 15:00 23:00 07:00 Intake Total 1400 ml 400 ml Balance 1400 ml 400 ml medications Current Medications Medications Dose Ordered Sig/Yessy Route Start Time Stop Time Status Last Admin Dose Admin Sodium Chloride 10 ml Q8HR IV 11/02/24 06:00 11/03/24 07:00 10 ML Acetaminophen 650 mg Q6HP PRN PO 11/01/24 22:30 11/03/24 08:56 650 MG Enoxaparin Sodium 40 mg Q24H SC 11/02/24 21:00 11/02/24 21:36 40 MG Pantoprazole Sodium 40 mg DAILY@0600 PO 11/02/24 06:00 11/03/24 07:01 40 MG Atorvastatin Calcium 40 mg HS PO 11/02/24 22:00 11/02/24 21:52 40 MG Ibuprofen 400 mg Q6HP PRN PO 11/03/24 10:45 laboratory and microbiology Laboratory Tests 11/03/24 05:03 Test 11/03/24 05:03 Range/Units Serum Glucose 95 74-106 mg/dL Problem List/Assessment/Plan Problem List/Assessment/Plan # Right shoulder pain due to mechanical fall # right shoulder deformity # right shoulder fracture - x-ray shows no fracture but some deformity -MRI ordered - orthopedic consult pending - pain management # hypotension resolved - monitor BP # hyperlipidemia - continue atorvastatin 40 mg daily - low carb low calorie diet # morbid obesity - BMI is 35.0 - lifestyle modification, regular exercise and low carb low calorie diet Goal of care discussed with patient for 23 minutes: Full code Plan discussed with Plan discussed with: Patient, Other Sepsis reassessment post fluid Respiratory Pattern: Regular Date of Service: Nov 03, 2024 Billing Provider: ANNEL HEREDIA MD Common Visit Codes: [id number] INP/OBS CARE(HIGH) JOHNNY NUR Nov 03, 2024 16:12 ANNEL HEREDIA MD Nov 04, 2024 21:56
[2024-11-03] MEDS: IBUPROFEN 400 MG TAB PO PRN (20:52)
[2024-11-04] VITALS (8 sets, daily range): BP systolic 112–134; BP diastolic 68–96; PULSE 66–92; RESP 16–20; TEMP 36.7; O2SAT 95–97
--- NOTE | 2024-11-04 14:09 | DVHDSRES ---
Discharge Summary Date of Admission Resident Creating Document: JOHNNY NUR RESIDENT Nov 01, 2024 at 22:24 Date of Discharge: Nov 04, 2024 Admitting Diagnosis Right shoulder pain Labs/Diagnostic Data: Laboratory Results Test 11/03/24 05:03 11/02/24 10:10 11/02/24 01:25 11/01/24 17:47 White Blood Count 7.6 10^3/uL (4.4-10.8) Red Blood Count 4.10 10^6/uL (4.0-5.20) Hemoglobin 12.6 g/dL (12.2-16.2) Hematocrit 36.8 % (36.0-46.0) Mean Corpuscular Volume 89.7 fL (80.0-100.0) Mean Corpuscular Hemoglobin 30.8 pg (28.0-32.0) Mean Corpuscular Hemoglobin Concent 34.4 g/dL (32.0-36.0) Red Cell Distribution Width 13.2 % (11.8-14.3) Platelet Count 332 10^3/uL (140-450) Mean Platelet Volume 6.5 fL (6.9-10.8) Neutrophils (%) (Auto) 42.3 % (37.0-80.0) Lymphocytes (%) (Auto) 46.5 % (10.0-50.0) Monocytes (%) (Auto) 8.8 % (0.0-12.0) Eosinophils (%) (Auto) 2.2 % (0.0-7.0) Basophils (%) (Auto) 0.2 % (0.0-2.0) Neutrophils # (Auto) 3.2 10 ^3/uL (1.6-8.6) Lymphocytes # (Auto) 3.5 10 ^3/uL (0.4-5.4) Monocytes # (Auto) 0.7 10 ^3/uL (0-1.3) Eosinophils # (Auto) 0.2 10 ^3/uL (0-0.8) Basophils # (Auto) 0 10 ^3/uL (0-0.2) Nucleated Red Blood Cells 0.1 % Sodium Level 138 mmol/L (136-145) Potassium Level 4.3 mmol/L (3.5-5.1) Chloride Level 107 mmol/L (98-107) Carbon Dioxide Level 25 mmol/L (20-31) Anion Gap 6 (5-15) Blood Urea Nitrogen 7 mg/dL (9-23) Creatinine 0.60 mg/dL (0.550-1.02) Glomerular Filtration Rate Calc 100 mL/min (>90) BUN/Creatinine Ratio 11.7 (10.0-20.0) Serum Glucose 95 mg/dL (74-106) Calcium Level 8.8 mg/dL (8.7-10.4) Hemoglobin A1c 5.6 % A1C (<5.7) Magnesium Level 1.8 mg/dL (1.6-2.6) Total Bilirubin 0.6 mg/dL (0.2-1.0) Aspartate Amino Transferase (AST) 29 U/L (13-40) Alanine Aminotransferase (ALT) 27 U/L (7-40) Alkaline Phosphatase 52 U/L (46-116) Creatine Kinase 306 U/L (34-145) Total Protein 6.2 g/dL (5.7-8.2) Albumin 3.8 g/dL (3.2-4.8) Triglycerides Level 163 mg/dL (< 150) Cholesterol Level 181 mg/dL (< 200) LDL Cholesterol 135 mg/dL (< 100) HDL Cholesterol 37 mg/dL (40-59) Vitamin B12 Level 883 pg/mL (211-911) Vitamin D 25-Hydroxy 52.9 ng/mL (30.0-100) Folic Acid 23.02 ng/mL (>5.38) Troponin I High Sensitivity < 3 ng/L (</=34) Urine Color Colorless (Yellow) Urine Clarity Clear (Clear) Urine pH 7.0 (5.0-9.0) Urine Specific [place] 1.007 (1.001-1.035) Urine Protein Negative (Negative) Urine Ketones Negative (Negative) Urine Blood Negative /uL (Negative) Urine Nitrite Negative (Negative) Urine Bilirubin Negative (Negative) Urine Urobilinogen Normal mg/dL (Negative) Urine Leukocyte Esterase Negative /uL (Negative) Urine RBC 3 /hpf (0 - 4) Urine Microscopic WBC < 1 /HPF (0-5) Urine Squamous Epithelial Cells Few /hpf (<5) Urine Bacteria Few /hpf (None Seen) Urine Glucose Normal mg/dL (Normal) Urine Opiates Screen Neg (NEGATIVE) Urine Fentanyl Screen Neg (NEGATIVE) Urine Barbiturates Screen Neg (NEGATIVE) Urine Phencyclidine Screen Neg (NEGATIVE) Urine Amphetamines Screen Neg (NEGATIVE) Urine Benzodiazepines Screen Neg (NEGATIVE) Urine Cocaine Screen Neg (NEGATIVE) Urine Cannabinoids Screen Neg (NEGATIVE) Test 11/01/24 14:23 Direct Bilirubin 0.1 mg/dL (<0.3) Thyroid Stimulating Hormone (TSH) 1.78 uIU/mL (0.55-4.78) Other Laboratory Tests 11/03/24 05:03 Brief Hx & Hospital Course: Patient is 64 years old female with PMH of hyperlipidemia came to ED with a history of mechanical fall. Patient tripped and fell yesterday when she was getting out of her [employer] on concrete block at the parking lot. Patient was complaining of right shoulder pain. denied hitting her head, dizziness or vertigo before falling., hypotensive at the scene, blood pressure was 88/60. Patient denied any chest pain, shortness of breath, diarrhea, palpitation, dysarthria or change in vision. Today patient was seen and examined at bedside. patient is still complaining of right shoulder pain, x-ray shows no fracture but some abnormality, MRI ordered. Patient had right shoulder pain due to mechanical fall. X-ray shows no acute fractue or dislocation. MRI (right shoulder) demonstrated a full-thickness tear of the supraspinatus infraspinatus tendon, partial-thickness tear of the subscapularis tendon, bicep subluxation, subacrpmial bursitis, intact glenoid and labrum. Orthopedics was consulted recommended: place patient in a sling for comfort and stabilization and outpatient orthopedic follow-up within 12 weeks for further evaluation and discussion of surgical vs non surgical management. Orthopedic cleared the patient to discharge home. We have started on Acetaminophen. Today patient still has pain and we applied sling to her right shoulder. Recommended physical therapy, consulted social service for outpatient physical therapy. Recommended to follow up with orthopedic surgeon as scheduled, follow-up with PCP in 1-2 weeks. Consults/Reason for consult Orthopedic consult Condition at Discharge: Fair Final Diagnosis/Problems List # Right shoulder pain due to mechanical fall # right shoulder deformity # Ruled out right shoulder fracture # Possible rotator cuff tear # Mild rhabdomyolysis # Hypotension resolved # Hyperlipidemia # morbid obesity Discharge Disposition: Home SNF Discharge Will this Physician continue t: No Discharge Instruct/Medications Diet: Regular Activity: Light activity Follow Up/Referral: Follow up with orthopedic surgeon as scheduled, Follow- up with PCP in 1-2 weeks. Medications: Tylenol and ibuprofen Continue other home medications Scheduled Acetaminophen (Acetaminophen Extra Stren), 1 TAB PO TID, (Reported) Acetaminophen (Acetaminophen ER 8 Hour), 650 MG PO TID Atorvastatin Calcium (Atorvastatin Calcium), 1 TAB PO QPM Famotidine (Pepcid Tablet), 1 TAB PO BID Ibuprofen Micronized (Ibuprofen), 400 MG PO TID Discharge Statement: "Patient was advised to return to the ER or call 911 if any headaches, dizziness, shortness of breath, chest pain, abdominal pain, bleeding, fevers, or worsening of medical condition. Patient was counseled about treatment plan, medications, possible side effects, patientverbalized understanding. All questions were answered to the best of my ability. This discharge took greater then 30 minutes in planning, reviewing documentation, counseling the patient, and discussing with other team members." ASSESSMENT ASSESSMENT Assessment # Right shoulder pain due to mechanical fall# right shoulder deformity# Ruled out right shoulder fracture# Possible rotator cuff tear# Mild rhabdomyolysis# Hypotension resolved# Hyperlipidemia# morbid obesity Date of Service: Nov 04, 2024 Billing Provider: ANNEL HEREDIA MD Common Visit Codes: [id number] DISCH DAY >30min JOHNNY NUR Nov 04, 2024 14:09 ANNEL HEREDIA MD Nov 04, 2024 21:58
[2024-11-04] MEDS ORDERED: IBUP1TAB4 PO (17:17)
[2024-11-04] MEDS ORDERED: ATOR40TA52 PO (17:17)
[2024-11-04] MEDS ORDERED: FAMO20TA10 PO (17:17)
[2024-11-04] MEDS ORDERED: ACET-1803 PO (17:17)
== END 2024-11-04 18:15 | disposition home or self-care (01) | DRG 351 ==
LOC: ER 14:05 → OVERFLOW 22:24 → WEST WING 23:59
PROVIDERS: ADMIT Student in an Organized Health Care Education/Training Program; ATTEND Emergency Medicine
DX: S46.011A Strain of muscle(s) and tendon(s) of the rotator cuff of right shoulder, initial encounter (principal); M62.82 Rhabdomyolysis; I95.9 Hypotension, unspecified; E66.01 Morbid (severe) obesity due to excess calories; Z68.35 Body mass index [BMI] 35.0-35.9, adult; E86.0 Dehydration; E78.5 Hyperlipidemia, unspecified; M21.821 Other specified acquired deformities of right upper arm; Z83.3 Family history of diabetes mellitus; Z82.3 Family history of stroke; Z79.899 Other long term (current) drug therapy; W01.0XXA Fall on same level from slipping, tripping and stumbling without subsequent striking against object, initial encounter; Y93.89 Activity, other specified; Y92.89 Other specified places as the place of occurrence of the external cause; Y99.8 Other external cause status
CPT/HCPCS: 36415; 73030; 73220; 80048; 80053; 80061; 80076; 80307; 81001; 82306; 82550; 82607; 82746; 83036; 83735; 84443; 84484; 85025; 86850; 86900; 86901; 93306; 96361; 96374; 97110; 97116; 97530; 99291; G0378; J2405

== ENCOUNTER 2025-02-09 08:14 | Day surgery (SDC) | payer MEDICAID ==
[2025-02-02 10:44] LABS: Hematocrit 39.2 % (36.0-46.0); Hemoglobin 13.4 g/dL (12.2-16.2); Mean Corpuscular Hemoglobin 30.6 pg (28.0-32.0); Mean Corpuscular Volume 89.4 fL (80.0-100.0); Nucleated Red Blood Cells % 0.0 %
[2025-02-02 10:51] LABS: Urine Protein, UAD Negative (Negative)
[2025-02-02 10:59] LABS: INR 0.98 (0.9-1.15); Partial Thromboplastin Time 26.0 SEC (24.5-34.5); Prothrombin Time 10.4 sec (9.3-11.8)
[2025-02-02 11:09] LABS: Albumin 4.6 g/dL (3.2-4.8); Alkaline Phosphatase 73 U/L (46-116); Anion Gap 8 (5-15); BUN/Creatinine Ratio 9.9 (10.0-20.0); Bilirubin, Total 0.7 mg/dL (0.2-1.0); Calcium 9.3 mg/dL (8.7-10.4); Carbon Dioxide 28 mmol/L (20-31); Chloride 98 mmol/L (98-107); Glucose 99 mg/dL (74-106); Potassium 4.5 mmol/L (3.5-5.1); Total Protein 7.7 g/dL (5.7-8.2)
[2025-02-02 11:10] LABS: Alanine Aminotransferase 46 U/L (7-40); Blood Urea Nitrogen 7 mg/dL (9-23); Sodium 134 mmol/L (136-145)
[~2025-02-09] VITALS: Ht 165.1 cm; Wt 93.0 kg
[~2025-02-09 08:14] MED LIST: ACET-1803 PO; ACETAMINOPHEN IV 100 ML IV ONE; ATOR40TA52 PO; CELECOXIB 100 MG CAP ONE; CYAN-17 PO; FAMO10TA9 PO; GABAPENTIN 300 MG CAP ONE; IBUP1TAB4 PO; MAGN400T40 OR; TRAM-626 PO; ZINC100T5 PO; ceFAZolin 2 GM/D5W50ml 50 ML IV ONE
[2025-02-09] MEDS ORDERED: LIDOCAINE 2% (LOCAL ANESTH.) PF 5ml SDV ONE (09:00)
[2025-02-09] MEDS ORDERED: ONDANSETRON HCL 4 MG/2 ML VIAL ONE (09:00)
[2025-02-09] MEDS ORDERED: PROPOFOL 10 MG/ML 20 ML IV ONE (09:00)
[2025-02-09] MEDS ORDERED: ROCURONIUM 10MG/ML 10ML VIAL IV ONE (09:00)
[2025-02-09] MEDS ORDERED: GLYCOPYRROLATE 0.2 MG/ML 1ML VIAL ONE (09:00)
[2025-02-09] MEDS ORDERED: KETOROLAC TROMETH 30 MG/ML 1ML VIAL ONE (09:00)
[2025-02-09] MEDS ORDERED: LIDOCAINE 1% INJ PF 5ML AMP ONE (09:00)
[2025-02-09] MEDS ORDERED: fentaNYL CITRATE 100 MCG/2 ML VL ONE (09:07)
[2025-02-09] MEDS ORDERED: PHENYLEPHRINE HCL 10 MG/ML VL ONE (09:30)
[2025-02-09] MEDS ORDERED: SODIUM CHLORIDE LOCK 10 ML ONE (09:30)
[2025-02-09 11:11] VITALS: PULSE 15; TEMP 97.4
--- NOTE | 2025-02-09 11:14 | DVHOP2 ---
Operative Report - 2 Report Details Date: 02/09/25 Preop Diagnosis: Right shoulder large rotator cuff tear Postop Diagnosis: Right shoulder massive rotator cuff tear, significant chondromalacia, biceps tendon tear Surgeon: Hernán Smith MD Receiving Weigher: Sarah Rosario, Physician Receiving Weigher Anesthesiologist: Cristino Daly CRNA Anesthesia: General, Regional Implant: Medacta all suture anchor x2, osseo bioabsorbable anchor x2, Rotium collagen augmentation Consent: The patient was informed of the risks and benefits of the procedure. These include but are not limited to complications of anesthesia, postoperative infection, incomplete relief of symptoms, recurrence of symptoms, damage to blood vessels, nerves and tendons, deep venous thrombosis, pulmonary embolism and possible need for repeat surgery in the future. Complications: None Estimated Blood Loss: Less than 10 mL Indications for Surgery: The patient is a 64-year-old female who had an acute onset rotator cuff tear. Mild atrophy was noted. However the tear size was large. Nonoperative and operative management options were discussed. Shoulder arthroscopy was considered given the acute nature of the injury. Benefits, risks and treatment alternatives of rotator cuff repair were discussed with her and her family. Surgical complications including neurovascular injury, infection, arthrofibrosis, loss of limb or life were discussed. She decided to proceed with the surgical option. Guarded prognosis with a high rate of re-tear due to her age and the large tear was also discussed with her. Name of Procedure Performed Right shoulder arthroscopy, extensive synovial debridement, biceps tendon tenodesis and rotator cuff repair. Procedure Details Procedure Details: The patient was identified in the preoperative holding area and the surgical site was marked. The consent was verified. The patient was brought into the operating room and placed supine on the operating table. General anesthesia was administered. The beachchair attachment was applied to the operating table. The patient was now brought up into the beachchair position, approximately 60 degrees. The arm was prepped and draped in the usual sterile manner. The arm was placed in the attachment for the spyder, mechanical arm casey. The extremity was examined under anesthesia and was found to have good passive range of motion. A timeout was performed to confirm the identity of the patient, the nature of surgery, the site of surgery, the available of implants and x-rays and allergies to medications A standard posterior portal established. A 30 degree scope was inserted A standard anterior portal was established. A probe was inserted and the findings are as follows: 1. Near complete subscapularis tendon tear 2. Significant fraying and tear of the biceps tendon 3. Circumferential degenerative labral tear 4. Grade 3/4 chondromalacia, especially on the posterior part of the humeral head, near complete cartilage loss. Glenoid looked overall intact with grade 1- 2 mild chondromalacia 5. Significant synovitis 6. Full-thickness rotator cuff tear, large-sized with retraction to cartilage with delamination The subscapularis tendon tear was repaired. A cannula was inserted through the anterior portal. Two suture loop fiber wire sutures were inserted through the upper 3rd of the subscapularis. A punch was used to create a hole and the osseo bioabsorbable anchor was inserted for excellent fixation of the subscapularis. The subacromial space was entered. Significant bursitis was noted. Decompression was carried out with bursectomy. The rotator cuff tear was visualized. This was a large to massive sized tear after debridement. This was delaminated and the inferior part was retracted up to the glenoid. The superior portion was at the mid glenohumeral joint. Extensive releases were performed. A thermal ablation Wand was used on the superior and inferior surface of the rotator cuff to do the releases. Rotator interval was also released. Significant time and efforts were spent doing the steps was to decrease the tension on the final repair. After this step, the cuff was very mobile. I decided to do a double row repair for this tear. Two medial row anchors were inserted. These were all suture anchors. These were triple loaded. Medacta anchors were used. I also decided to use Rotium bioabsorbable wick as collagen augment. This was inserted on the undersurface of the rotator cuff as per manufacture's guidelines. This was passed through two sutures on the posterior anchor. Excellent coverage was noted. A suture penetration and grasping device was used to grasp the tissue and passed the sutures. The sutures were sequentially passed from anterior to posterior direction. 10 passes were made. The sutures were now tied for an excellent medial row footprint coverage. The anterior two sutures were passed through the biceps tendon for a biceps tenodesis and then passed through the cuff as well. Biceps tenodesis was completed. 8 of the sutures were now inserted into a knotless lateral row anchor. This was used as per manufacture's guidelines. A punch was used. Next, the osseo anchor was used and inserted into the bone. Good fixation was noted. Irrigation was given and the skin portals were closed with 2-0 nylon Sterile dressing was applied. Local anesthetic was given. Shoulder immobilizer was ap plied Disposition: Good, the patient was extubated and taken to recovery without any complications. The patient was examined in the recovery and had intact neurovascular exam Plan: To remain in the brace. Follow-up in 1 week. Condition Good Disposition Home HERNÁN SMITH MD Feb 09, 2025 11:14
[2025-02-09] MEDS ORDERED: NALOXONE HCL 0.4 MG/ML VIAL IV PRN (11:30)
[2025-02-09] MEDS ORDERED: fentaNYL CITRATE 100 MCG/2 ML VL IV PRN (11:30)
[2025-02-09] MEDS ORDERED: hydrALAZINE HCL 20 MG/ML VL IV PRN (11:30)
[2025-02-09] MEDS ORDERED: ONDANSETRON HCL 4 MG/2 ML VIAL IV PRN (11:30)
[2025-02-09] MEDS ORDERED: FLUMAZENIL 0.1 MG/ML INJ 10ML MDV IV PRN (11:30)
[2025-02-09] MEDS: HYDROmorphone HCL 2 MG/ML VL/or syr IV PRN (12:04)
[2025-02-09] MEDS ORDERED: HYDR-4902 PO (12:18)
[2025-02-09] MEDS ORDERED: CEPH500T PO (12:18)
[2025-02-09] MEDS ORDERED: ASPI81CH74 PO (12:18)
[2025-02-09 12:30] VITALS: BP 110/50; PULSE 77; RESP 13; O2SAT 95
== END 2025-02-09 13:45 | disposition home or self-care (01) ==
LOC: SUR 08:14
PROVIDERS: ATTEND Orthopaedic Surgery Sports Medicine
DX: M75.101 Unspecified rotator cuff tear or rupture of right shoulder, not specified as traumatic (principal); M94.211 Chondromalacia, right shoulder; S46.211A Strain of muscle, fascia and tendon of other parts of biceps, right arm, initial encounter; G89.18 Other acute postprocedural pain; S43.431A Superior glenoid labrum lesion of right shoulder, initial encounter; M65.811 Other synovitis and tenosynovitis, right shoulder; M75.51 Bursitis of right shoulder; X58.XXXA Exposure to other specified factors, initial encounter; Y93.89 Activity, other specified; Y92.89 Other specified places as the place of occurrence of the external cause; Y99.8 Other external cause status; E66.9 Obesity, unspecified; Z87.891 Personal history of nicotine dependence
CPT/HCPCS: 29826; 29827; 29828; 36415; 64415; 80053; 81001; 85025; 85610; 85730; C1713; J0169; J0690; J1100; J1171; J1885; J2003; J2371; J2405; J2704; J3010; A4565; J0131